=== PATIENT | female | born 1985 | race Caucasian/White ===

== ENCOUNTER 2018-02-15 20:33 | Emergency (ER) | payer SELFPAY | END 2018-02-15 22:34 | disposition home or self-care (01) | LOC: MADERS 20:33 | DX: S40.011A Contusion of right shoulder, initial encounter (principal); F17.210 Nicotine dependence, cigarettes, uncomplicated; W11.XXXA Fall on and from ladder, initial encounter | CPT/HCPCS: 99283 ==